=== PATIENT | male | born 1935 | race Caucasian/White ===

== ENCOUNTER → 2017-08-31 | Outpatient (CLI) | payer MEDICARE, OTHER ==
[2017-09-01 13:35] LABS: Stool Occult Bld Immuno 1 Negative (NEGATIVE); Stool Occult Bld Immuno 2 Negative (NEGATIVE)
[2017-09-01 13:36] LABS: Stool Occult Bld Immuno 3 Negative (NEGATIVE)
== END ==
LOC: OLS 15:26 → LAB SHORT 15:26
PROVIDERS: Nurse Practitioner Family
DX: D64.9 Anemia, unspecified (principal)
CPT/HCPCS: 82274

== ENCOUNTER 2017-10-26 07:03 | Day surgery (SDC) | payer MEDICARE, OTHER ==
[~2017-10-26] VITALS: Ht 182.9 cm; Wt 92.4 kg
[~2017-10-26 07:03] MED LIST: ALLO300; ASPI81CH; LOSA50
== END 2017-10-26 08:58 | disposition home or self-care (01) ==
LOC: ORSCSDS 07:03
PROVIDERS: Ophthalmology
PROC: 08RK3JZ Replacement of Left Lens with Synthetic Substitute, Percutaneous Approach (ICD-10-PCS; principal; 2017-10-26 08:30)
DX: H25.12 Age-related nuclear cataract, left eye (principal); I10 Essential (primary) hypertension; E78.00 Pure hypercholesterolemia, unspecified; Z87.891 Personal history of nicotine dependence; Z79.82 Long term (current) use of aspirin; Z79.899 Other long term (current) drug therapy
CPT/HCPCS: J2250; J3301; J7040; V2632

== ENCOUNTER 2020-06-06 09:13 | Day surgery (SDC) | payer MEDICARE, BC ==
[~2020-06-06] VITALS: Ht 182.9 cm; Wt 85.0 kg
[~2020-06-06 09:13] MED LIST changes: -ALLO300; +ALLO300 PO; -ASPI81CH; +ASPI81CH PO; +GABA300 PO; +LASIX20 M1 PO; +METO25ER PO; +MIRALAX17 GM PO
--- NOTE | 2020-06-06 12:40 | NUR ---
PT TO RECOVERY ROOM POST PROCEDURE. PT AWAKE AND CONVERSING APPROPRIATELY; DENIES PAIN POST PROCEDURE. MONITOR SB/SR WITH IVCD 50-60'S, B/P 136/63, AFEBRILE, SPO2 96% RA. R RADIAL SITE NO SWELLING/HEMATOMA, TR BAND IN PLACE 12 CC AIR; POSITIVE PLEUTH PRESENT. R AC (VENOUS) SITE NO SWELLING/HEMATOMA, JASON AND TEGADERM DRSG IN PLACE. PT TAKING LUNCH WITHOUT ISSUE.
--- NOTE | 2020-06-06 14:10 | NUR ---
PT AMB TO BATHROOM WITHOUT ISSUE, GAIT STEADY, VOIDED QS; SITES UNCHANGED WITH ACTIVITY.
--- NOTE | 2020-06-06 15:15 | NUR ---
PT DRESSED SELF WITHOUT ANY ISSUES, SITES UNCHANGED. TR BAND REMOVED, CLOTH DOT AND WRIST IMMOBILIZER IN PLACE; IV REMOVED-CANNULA INTACT.
--- NOTE | 2020-06-06 15:25 | NUR ---
PT RECEIVED DISCHARGE INSTRUCTIONS, MED LIST AND AFTER CARE INSTRUCTIONS; VERBALIZED GOOD UNDERSTANDING. PT LEFT FACILITY VIA W/C, CONDITION STABLE.
[2020-06-12] MEDS ORDERED: Flonase 0.05% N16 GM (15:10)
== END 2020-06-06 15:25 | disposition home or self-care (01) ==
LOC: MHTC 09:13
PROC: B2111ZZ Fluoroscopy of Multiple Coronary Arteries using Low Osmolar Contrast (ICD-10-PCS; principal; 2020-06-06)
PROC: 4A023N8 Measurement of Cardiac Sampling and Pressure, Bilateral, Percutaneous Approach (ICD-10-PCS; principal; 2020-06-06)
DX: I13.0 Hypertensive heart and chronic kidney disease with heart failure and stage 1 through stage 4 chronic kidney disease, or unspecified chronic kidney disease (principal); I50.20 Unspecified systolic (congestive) heart failure; N18.30 Chronic kidney disease, stage 3 unspecified; E78.00 Pure hypercholesterolemia, unspecified; I25.5 Ischemic cardiomyopathy; E78.5 Hyperlipidemia, unspecified; I25.10 Atherosclerotic heart disease of native coronary artery without angina pectoris; I44.0 Atrioventricular block, first degree; Z88.0 Allergy status to penicillin; Z88.8 Allergy status to other drugs, medicaments and biological substances; Z79.82 Long term (current) use of aspirin; Z79.899 Other long term (current) drug therapy; Z87.891 Personal history of nicotine dependence; I42.8 Other cardiomyopathies; I27.20 Pulmonary hypertension, unspecified; K21.9 Gastro-esophageal reflux disease without esophagitis; E03.9 Hypothyroidism, unspecified; I08.3 Combined rheumatic disorders of mitral, aortic and tricuspid valves; Z20.822 Contact with and (suspected) exposure to COVID-19
CPT/HCPCS: 76937; 93456; 99152; 99153; C1769; C1894; J1644; J2250; J3010; J7030; J7050; Q9967

== ENCOUNTER 2020-06-13 08:45 | Day surgery (SDC) | payer MEDICARE, BC ==
[~2020-06-13] VITALS: Ht 182.9 cm; Wt 83.8 kg
[~2020-06-13 08:45] MED LIST changes: +Flonase 0.05% N16 GM
[2020-06-13 09:32] LABS: BASOPHILS ABSOLUTE AUTO 0.02 K/mm3 (0.00-0.23); BASOPHILS PERCENT AUTO 0 % (0-2); EOSINOPHILS ABSOLUTE AUTO 0.16 K/mm3 (0.00-0.68); EOSINOPHILS PERCENT AUTO 4 % (0-6); Hematocrit 37.1 % (37.0-53.0); IMMATURE GRAN ABSOLUTE AUTO 0.02 K/mm3 (0.00-0.10); IMMATURE GRAN PERCENT AUTO 0 % (0-1); LYMPHOCYTES ABSOLUTE AUTO 1.66 K/mm3 (0.84-5.20); LYMPHOCYTES PERCENT AUTO 36 % (21-46); MONOCYTES ABSOLUTE AUTO 0.41 K/mm3 (0.16-1.47); MONOCYTES PERCENT AUTO 9 % (4-13); Mean Corpuscular HGB 30.8 pg (26.0-34.0); Mean Corpuscular HGB Conc 32.3 g/dL (31.5-36.5); Mean Corpuscular Volume 95 fL (80-100); Mean Platelet Volume 9.6 fL (9.1-12.4); NEUTROPHILS ABSOLUTE AUTO 2.31 K/mm3 (1.96-9.15); NEUTROPHILS PERCENT AUTO 51 % (41-73); Platelet Count 164 K/mm3 (150-400); RDW Coefficient Variation 14.6 % (11.7-14.2); RDW Standard Deviation 50.6 fL (35.1-46.3); White Blood Cell Count 4.58 K/mm3 (4.00-11.30)
[2020-06-13 09:46] LABS: International Normalized Ratio 0.98; Prothrombin Time Results 10.5 Sec (9.7-11.5)
[2020-06-13 09:48] LABS: Calcium, Blood 9.2 mg/dL (8.5-10.1); Creatinine, Blood 1.36 mg/dL (0.60-1.20); Potassium, Blood 4.5 mmol/L (3.5-5.5)
--- NOTE | 2020-06-13 12:55 | NUR ---
ADMIT PT ARRIVED TO ICU 15 AT 1220 PCU STATUS EXTENDED RECOVERY. PT IS AWAKE, ALERT, AND ORIENTED. PT DENIES ANY CHEST PAIN OR DISCOMFORT. PT VITAL SIGNS STABLE, ON ROOM AIR. ST ELEVATION NOTED. PER PERSONAL SUPPORT WORKER RN, ST ELEVATION IS UNCHANGED. PT WITH TR BAND IN PLACE TO RIGHT RADIAL ACCESS SITE. ARM BOARD IN PLACE. SITE IS SOFT NONTENDER, NO HEMATOMA, DISTAL PULSE PRESENT. REVIEWED PRECAUTIONS RELATED TO TR BAND WITH PT, PT VERBALIZED UNDERSTANDING. PT DENIES NEED TO VOID AT THIS TIME. WILL CONTINUE TO MONITOR.
[2020-06-13] MEDS ORDERED: CLOP75 PO (17:41)
--- NOTE | 2020-06-13 17:50 | NUR ---
LEAVING AMA PT WITH MULTIPLE STATEMENTS REGARDING LEAVING THE HOSPITAL TONIGHT. DR FISEHR INFORMED. DR FISHER CAME TO SEE PT AT 1730 AND DISCUSSED RISKS OF PT LEAVING THE HOSPITAL TONIGHT. PT REMAINED ADAMENT THAT HE LEAVE TONIGHT. DR FISHER INFORMED PT THAT HE WOULD BE LEAVING AGAINST MEDICAL ADVICE, BUT WOULD LIKE PT TO START TAKING PLAVIX TOMORROW. VERBAL ORDER RECIEVED TO CALL PT PHARMACY FOR PLAVIX PRESCRIPTION. [facility] CALLED FOR PRESCRIPTION OF PLAVIX 75 MG PO DAILY, 30 TAB SUPPLY. PT SIGNED AMA PAPERWORK. PT STATES [facility] IS ON THE WAY. ALL PT BELONGINGS SENT WITH PT.
== END 2020-06-13 18:05 | disposition left against medical advice (07) ==
LOC: MHTC 08:45 → ICUW 12:20 → MHTC 18:05
PROVIDERS: Internal Medicine Interventional Cardiology
DX: I25.10 Atherosclerotic heart disease of native coronary artery without angina pectoris (principal); I13.0 Hypertensive heart and chronic kidney disease with heart failure and stage 1 through stage 4 chronic kidney disease, or unspecified chronic kidney disease; I50.22 Chronic systolic (congestive) heart failure; N18.30 Chronic kidney disease, stage 3 unspecified; K21.9 Gastro-esophageal reflux disease without esophagitis; E78.5 Hyperlipidemia, unspecified; E03.9 Hypothyroidism, unspecified; M10.9 Gout, unspecified; Z87.891 Personal history of nicotine dependence; Z79.82 Long term (current) use of aspirin; Z88.0 Allergy status to penicillin; Z88.6 Allergy status to analgesic agent
CPT/HCPCS: 76937; 80048; 85025; 85347; 85610; 92920; 92978; 93571; 99152; 99153; A9270; C1725; C1753; C1769; C1874; C1887; C1894; J1644; J1650; J2250; J3010; J7030; J7050; Q9967

== ENCOUNTER 2022-08-30 11:08 | Day surgery (SDC) | payer MEDICARE, BC ==
[~2022-08-30] VITALS: Ht 182.9 cm; Wt 88.7 kg
[~2022-08-30 11:08] MED LIST changes: +CLOP75 PO
[2022-08-30] MEDS ORDERED: LISI5 (11:29)
[2022-08-30] MEDS ORDERED: CENTRUM SILVER1 EAC2 (11:30)
[2022-08-30 11:36] VITALS: BP 154/74
--- NOTE | 2022-08-30 13:18 | NUR ---
08/30/22 1318 Adia Hilton PT COMPLAINED OF CHEST PAIN AND PRESSURE WHILE WALKING INTO THE SURGERY CENTER. RN ASSESSED PT AND WENT OVER THE CARDIAC QUESTIONAIRRE (SEE CHART). RN NOIFIED DR CARRILLO AND DR SALEH OF THE RESULTS OF THE QUESTIONAIRRE. DR SALEH STATED THIS PATIENT SHOULD BE AN ANESTHESIA CASE. REPORT GIVEN TO [facility] [place]. DR FOOTE TO ASSESS AND MAKE FINAL DECISION.
== END 2022-08-30 14:00 | disposition home or self-care (01) ==
LOC: ORSCSDS 11:08
DX: R13.10 Dysphagia, unspecified (principal); Z53.9 Procedure and treatment not carried out, unspecified reason
CPT/HCPCS: J2704; J7120

== ENCOUNTER 2022-12-20 11:01 | Day surgery (SDC) | payer MEDICARE, BC ==
[~2022-12-20 11:01] MED LIST changes: +CENTRUM SILVER1 EAC2; +Isosorbide Mono30 MG PO; +LISI5; +NITR.4SL SL
== END 2022-12-20 23:01 | disposition home or self-care (01) ==
LOC: MHTC 11:01
DX: I49.3 Ventricular premature depolarization (principal); R00.1 Bradycardia, unspecified
CPT/HCPCS: 93242

== ENCOUNTER 2022-12-22 11:32 | Emergency (ER) | payer MEDICARE, BC ==
[~2022-12-22] VITALS: Ht 182.9 cm; Wt 81.7 kg
[2022-12-22 12:35] LABS: BASOPHILS ABSOLUTE AUTO 0.03 K/mm3 (0.00-0.23); BASOPHILS PERCENT AUTO 1 % (0-2); EOSINOPHILS ABSOLUTE AUTO 0.06 K/mm3 (0.00-0.68); EOSINOPHILS PERCENT AUTO 1 % (0-6); Hematocrit 33.3 % (37.0-53.0); Hemoglobin 11.1 g/dL (13.5-17.5); IMMATURE GRAN ABSOLUTE AUTO 0.04 K/mm3 (0.00-0.10); IMMATURE GRAN PERCENT AUTO 1 % (0-1); LYMPHOCYTES ABSOLUTE AUTO 1.23 K/mm3 (0.84-5.20); LYMPHOCYTES PERCENT AUTO 23 % (21-46); MONOCYTES ABSOLUTE AUTO 0.38 K/mm3 (0.16-1.47); MONOCYTES PERCENT AUTO 7 % (4-13); Mean Corpuscular HGB 31.9 pg (26.0-34.0); Mean Corpuscular HGB Conc 33.3 g/dL (31.5-36.5); Mean Corpuscular Volume 96 fL (80-100); Mean Platelet Volume 9.8 fL (9.1-12.4); NEUTROPHILS ABSOLUTE AUTO 3.72 K/mm3 (1.96-9.15); NEUTROPHILS PERCENT AUTO 68 % (41-73); Platelet Count 199 K/mm3 (150-400); RDW Coefficient Variation 14.3 % (11.7-14.2); Red Blood Cell Count 3.48 M/mm3 (4.30-5.90); White Blood Cell Count 5.46 K/mm3 (4.00-11.30)
[2022-12-22 12:40] LABS: Albumin, Blood 3.8 g/dL (3.4-5.0); Albumin/Globulin Ratio 1.1 (0.8-1.8); Bilirubin, Total 0.8 mg/dL (0.1-1.0); Bun/Creatinine Ratio 21.1 (12.0-20.0); Calcium, Blood 9.3 mg/dL (8.5-10.1); Creatinine, Blood 1.71 mg/dL (0.60-1.20); Globulin, Blood 3.5 g/dL (2.2-4.0); Potassium, Blood 5.3 mmol/L (3.5-5.5); Total Protein, Blood 7.3 g/dL (6.4-8.2)
[2022-12-22 15:42] VITALS: BP 128/75
== END 2022-12-22 15:43 | disposition home or self-care (01) ==
LOC: ER 11:32
PROVIDERS: Emergency Medicine
DX: R07.9 Chest pain, unspecified (principal); Z88.8 Allergy status to other drugs, medicaments and biological substances; Z88.0 Allergy status to penicillin; Z87.891 Personal history of nicotine dependence
CPT/HCPCS: 71046; 80053; 83690; 84484; 85025; 93005; 93010; 99285-25

== ENCOUNTER 2023-12-20 09:12 | Day surgery (SDC) | payer MEDICARE, BC ==
[~2023-12-20] VITALS: Ht 182.9 cm; Wt 87.3 kg
[~2023-12-20 09:12] MED LIST changes: +Balanced Salt Epinephrine Irrigation Solution 500 mL IR SCH; +Lidocaine HCl/Pf 1% 5 ML VIAL XX SCH; +Moxifloxacin HCL 0.5 MG/0.1 ML 0.4MLSYR RIGHTEYE SCH; +NS 500 ML IV ONE; +PHENYLEPHRINE\\TROPICAMIDE\\TETRACAINE OPHTHALMIC DILATING SOLN RIGHTEYE PRN; +Povidone-Iodine 450 DROP/30 ML Solution RIGHTEYE SCH
[2023-12-20] MEDS ORDERED: FUROSEMIDE20 MG (09:50)
[2023-12-20] MEDS ORDERED: GABAPENTIN 100MG (09:51)
[2023-12-20] MEDS ORDERED: NITROGLYCERIN 0.4 MG (09:51)
[2023-12-20] MEDS ORDERED: GABA100 (09:52)
[2023-12-20] MEDS ORDERED: POTA8 (09:53)
[2023-12-20] MEDS ORDERED: NS 1,000 ML IV ONE (09:56)
[2023-12-20] MEDS ORDERED: Midazolam HCl 1MG / ML 2ML Vial ONE (10:26)
[2023-12-20 10:53] VITALS: BP 140/90
== END 2023-12-20 11:10 | disposition home or self-care (01) ==
LOC: ORSCSDS 09:12
PROVIDERS: Student in an Organized Health Care Education/Training Program
PROC: 08RJ3JZ Replacement of Right Lens with Synthetic Substitute, Percutaneous Approach (ICD-10-PCS; principal; 2023-12-20 10:30)
DX: H25.811 Combined forms of age-related cataract, right eye (principal); Z96.1 Presence of intraocular lens; I10 Essential (primary) hypertension; I25.10 Atherosclerotic heart disease of native coronary artery without angina pectoris; E78.5 Hyperlipidemia, unspecified; E03.9 Hypothyroidism, unspecified; K21.9 Gastro-esophageal reflux disease without esophagitis; Z87.891 Personal history of nicotine dependence; Z79.82 Long term (current) use of aspirin; Z79.899 Other long term (current) drug therapy
CPT/HCPCS: J2250; J7040; V2632

== ENCOUNTER → 2025-04-26 | Outpatient (CLI) | payer MEDICARE, BC ==
[~2025-04-26] MED LIST changes: -Balanced Salt Epinephrine Irrigation Solution 500 mL IR SCH; +FUROSEMIDE20 MG; +GABA100; +GABAPENTIN 100MG; -Lidocaine HCl/Pf 1% 5 ML VIAL XX SCH; -Moxifloxacin HCL 0.5 MG/0.1 ML 0.4MLSYR RIGHTEYE SCH; +NITROGLYCERIN 0.4 MG; -NS 500 ML IV ONE; -PHENYLEPHRINE\\TROPICAMIDE\\TETRACAINE OPHTHALMIC DILATING SOLN RIGHTEYE PRN; +POTA8; -Povidone-Iodine 450 DROP/30 ML Solution RIGHTEYE SCH
[2025-04-26 13:15] LABS: Source, Urine Clean Catch
[2025-04-26 14:46] LABS: Bilirubin, Urine Neg (Neg); Color, Urine Yellow (P-Yellow); Glucose Qualitative, Urine Neg (Neg); Ketones, Urine Neg (Neg); Leukocyte Esterase, Urine Neg (Neg); Protein, Urine 2+ (Neg); Specific Gravity, Urine 1.015 (1.003-1.022); Urobilinogen, Urine NORM (Normal)
[2025-04-26 15:18] LABS: Red Blood Cells, Urine 0-2 /hpf (0-2); White Blood Cells, Urine 0-2 /hpf (0-5)
== END ==
LOC: LAB 12:00 → LAB SHORT 12:00 → LAB FUT 04-23 15:55
PROVIDERS: Internal Medicine Nephrology
DX: N18.32 Chronic kidney disease, stage 3b (principal); D63.1 Anemia in chronic kidney disease; I12.9 Hypertensive chronic kidney disease with stage 1 through stage 4 chronic kidney disease, or unspecified chronic kidney disease
CPT/HCPCS: 81001; 87086